=== PATIENT | male | born 1960 | race Caucasian/White ===

== ENCOUNTER 2020-01-30 13:12 | Observation (INO) | payer OTHER ==
[2020-01-30] MEDS ORDERED: Sodium Chloride 0.9% 10 ML Syringe FLUSH PRN (14:06)
[2020-01-30] MEDS ORDERED: chlordiazePOXIDE 10 MG Cap PO PRN (14:11)
[2020-01-30] MEDS ORDERED: Aspirin 81 MG Tab.Chew PO ONE (14:11)
[2020-01-30] MEDS ORDERED: Clopidogrel 75 MG Tab PO ONE (14:11)
[2020-01-30] MEDS ORDERED: Enoxaparin 40 MG/0.4 ML Syringe SUBCUT SCH (15:00)
[2020-01-30] MEDS ORDERED: Clopidogrel 75 MG Tab ONE (16:56)
[2020-01-30] MEDS ORDERED: Aspirin 81 MG Tab.Chew ONE (16:56)
[2020-01-30 16:58] LABS: HEMOGLOBIN A1C 6.7 % (4.3-5.7)
[2020-01-30 17:10] LABS: ANION GAP 15.4 mmol/L (5-15); SODIUM,NA 124 mmol/L (136-145)
[2020-01-30] MEDS ORDERED: Albuterol 0.083% 2.5 MG/3 ML Neb Soln INH PRN (17:12)
[2020-01-30] MEDS ORDERED: Acetaminophen 325 MG Tab PO PRN (17:12)
--- NOTE | 2020-01-30 17:15 | CR ---
[id number] RAD/RAD Chest PA And Lateral EXAM: RAD Chest PA And Lateral INDICATION: CHEST PAIN. COMPARISON: None available. DISCUSSION: Cardiomediastinal silhouette is normal in size and contour. No infiltrate, effusion, pneumothorax, or edema. IMPRESSION: No acute cardiopulmonary abnormality. Hayder Ledesma DO 01/30/20 1714 Thank you for allowing us to participate in the care of your patient.
[2020-01-30 17:21] LABS: CHLORIDE,CL 89 mmol/L (98-115)
[2020-01-30] MEDS: Vitamin B Complex Tab PO SCH (17:25)
[2020-01-30] MEDS ORDERED: ALBUTEROL INH PRN (17:51)
[2020-01-30] MEDS: METOPROLOL SUCCINATE 50 MG PO SCH (18:26)
[2020-01-30] MEDS: Enoxaparin 40 MG/0.4 ML Syringe SUBCUT SCH (20:21)
[2020-01-30] MEDS: chlordiazePOXIDE 10 MG Cap PO PRN (20:22)
[2020-01-31] MEDS: Enoxaparin 40 MG/0.4 ML Syringe SUBCUT SCH ×2 (08:31→19:00)
[2020-01-31] MEDS: Aspirin 81 MG Tab.EC #OWN MED# PO SCH (08:32)
[2020-01-31] MEDS: LOSARTAN 100 MG PO SCH (08:33)
[2020-01-31] MEDS: HYDROCHLOROTHIAZIDE 25 MG PO SCH (08:33)
[2020-01-31] MEDS: AMLODIPINE 10 MG PO SCH (08:34)
[2020-01-31] MEDS: Vitamin B Complex Tab PO SCH (08:46)
[2020-01-31] MEDS: Clopidogrel 75 MG Tab PO SCH (08:46)
[2020-01-31] MEDS ORDERED: Metoprolol Succinate 50 MG Tab.ER PO SCH (09:00)
[2020-01-31] MEDS ORDERED: amLODIPine 5 MG Tab PO SCH (09:00)
[2020-01-31] MEDS ORDERED: Aspirin 81 MG Tab.EC PO SCH (09:00)
[2020-01-31] MEDS ORDERED: Hydrochlorothiazide 25 MG Tab PO SCH (09:00)
[2020-01-31 10:43] LABS: ANION GAP 11.4 mmol/L (5-15); CHLORIDE,CL 93 mmol/L (98-115); SODIUM,NA 129 mmol/L (136-145)
--- NOTE | 2020-01-31 11:00 | PCM.PN ---
- General Info Date of Service: 01/31/20 Functional Status: Reports: Tolerating Diet, Urinating, New Symptoms, Other - Review of Systems General: Reports: No Symptoms HEENT: Reports: No Symptoms Pulmonary: Reports: No Symptoms Cardiovascular: Reports: No Symptoms Gastrointestinal: Reports: No Symptoms Genitourinary: Reports: No Symptoms Musculoskeletal: Reports: Leg Pain Skin: Reports: Rash Neurological: Reports: Difficulty Walking. Denies: Confusion, Dizziness Psychiatric: Reports: No Symptoms - Patient Data Vitals - Most Recent: Last Vital Signs Temp 98.2 F 01/31/20 07:00 Pulse 78 01/31/20 07:00 Resp 16 01/31/20 07:00 BP 158/84 H 01/31/20 08:34 Pulse Ox 97 01/31/20 09:00 Weight - Most Recent: 231 lb 3.2 oz I&O - Last 24 Hours: Intake & Output 01/30/20 01/31/20 01/31/20 22:59 06:59 14:59 Intake Total 600 100 Balance 600 100 Lab Results Last 24 Hours: Laboratory Results - last 24 hr 01/30/20 01/30/20 01/30/20 Range/Units 16:15 16:30 16:30 WBC 4.73 L (5.00-10.00) 10^3/uL RBC 4.03 L (4.50-6.00) 10^6/uL Hgb 13.3 (13.0-17.0) g/dL Hct 37.7 L (40.0-52.0) % MCV 93.5 H D (82.0-92.0) fL MCH 33.0 H (27.0-31.0) pg MCHC 35.3 (32.0-36.0) g/dL RDW 14.8 H (11.5-14.5) % Plt Count 173 (150-400) 10^3/uL MPV 9.1 (7.4-10.4) fL Immature Gran % (Auto) 0.4 (0.0-5.0) % Neut % (Auto) 59.5 (50.0-70.0) % Lymph % (Auto) 21.1 (20.0-40.0) % [place] % (Auto) 16.3 H (2.0-8.0) % Eos % (Auto) 2.1 (1.0-3.0) % Baso % (Auto) 0.6 (0.0-1.0) % Neut # (Auto) 2.81 (2.50-7.00) 10^3/uL Lymph # (Auto) 1.00 (1.00-4.00) 10^3/uL [place] # (Auto) 0.77 (0.10-0.80) 10^3/uL Eos # (Auto) 0.10 (0.10-0.30) 10^3/uL Baso # (Auto) 0.03 (0.00-0.10) 10^3/uL Immature Gran # (Auto) 0.02 (0.00-0.50) 10^3/uL Sodium 124 L (136-145) mmol/L Potassium 3.6 (3.3-5.3) mmol/L Chloride 89 L* (98-115) mmol/L Carbon Dioxide 23.2 (21.0-32.0) mmol/L Anion Gap 15.4 H (5-15) mmol/L BUN 9 (6-25) mg/dL Creatinine 0.85 (0.51-1.17) mg/dL Est Cr Clr Drug Dosing TNP Estimated GFR (MDRD) > 60 mL/min Glucose 182 H (75 - 99) mg/dL Hemoglobin A1c (4.3-5.7) % Calcium 8.8 (8.7-10.3) mg/dL Total Bilirubin 0.7 (0.2-1.0) mg/dL AST 47 H (15-37) U/L ALT 51 (12-78) U/L Alkaline Phosphatase 85 (46-116) IU/L Troponin I (0.00-0.070) ng/mL Total Protein 7.9 (6.4-8.2) g/dL Albumin 3.63 (3.00-4.80) g/dL SARS CoV-2 RNA Rapid FELIPE Negative (NEGATIVE) 01/30/20 01/30/20 01/30/20 Range/Units 16:30 16:30 20:35 WBC (5.00-10.00) 10^3/uL RBC (4.50-6.00) 10^6/uL Hgb (13.0-17.0) g/dL Hct (40.0-52.0) % MCV (82.0-92.0) fL MCH (27.0-31.0) pg MCHC (32.0-36.0) g/dL RDW (11.5-14.5) % Plt Count (150-400) 10^3/uL MPV (7.4-10.4) fL Immature Gran % (Auto) (0.0-5.0) % Neut % (Auto) (50.0-70.0) % Lymph % (Auto) (20.0-40.0) % [place] % (Auto) (2.0-8.0) % Eos % (Auto) (1.0-3.0) % Baso % (Auto) (0.0-1.0) % Neut # (Auto) (2.50-7.00) 10^3/uL Lymph # (Auto) (1.00-4.00) 10^3/uL [place] # (Auto) (0.10-0.80) 10^3/uL Eos # (Auto) (0.10-0.30) 10^3/uL Baso # (Auto) (0.00-0.10) 10^3/uL Immature Gran # (Auto) (0.00-0.50) 10^3/uL Sodium (136-145) mmol/L Potassium (3.3-5.3) mmol/L Chloride (98-115) mmol/L Carbon Dioxide (21.0-32.0) mmol/L Anion Gap (5-15) mmol/L BUN (6-25) mg/dL Creatinine (0.51-1.17) mg/dL Est Cr Clr Drug Dosing Estimated GFR (MDRD) mL/min Glucose (75 - 99) mg/dL Hemoglobin A1c 6.7 H (4.3-5.7) % Calcium (8.7-10.3) mg/dL Total Bilirubin (0.2-1.0) mg/dL AST (15-37) U/L ALT (12-78) U/L Alkaline Phosphatase (46-116) IU/L Troponin I 0.05 0.05 (0.00-0.070) ng/mL Total Protein (6.4-8.2) g/dL Albumin (3.00-4.80) g/dL SARS CoV-2 RNA Rapid FELIPE (NEGATIVE) 01/31/20 01/31/20 Range/Units 07:26 07:26 WBC (5.00-10.00) 10^3/uL RBC (4.50-6.00) 10^6/uL Hgb (13.0-17.0) g/dL Hct (40.0-52.0) % MCV (82.0-92.0) fL MCH (27.0-31.0) pg MCHC (32.0-36.0) g/dL RDW (11.5-14.5) % Plt Count (150-400) 10^3/uL MPV (7.4-10.4) fL Immature Gran % (Auto) (0.0-5.0) % Neut % (Auto) (50.0-70.0) % Lymph % (Auto) (20.0-40.0) % [place] % (Auto) (2.0-8.0) % Eos % (Auto) (1.0-3.0) % Baso % (Auto) (0.0-1.0) % Neut # (Auto) (2.50-7.00) 10^3/uL Lymph # (Auto) (1.00-4.00) 10^3/uL [place] # (Auto) (0.10-0.80) 10^3/uL Eos # (Auto) (0.10-0.30) 10^3/uL Baso # (Auto) (0.00-0.10) 10^3/uL Immature Gran # (Auto) (0.00-0.50) 10^3/uL Sodium 129 L (136-145) mmol/L Potassium 3.7 (3.3-5.3) mmol/L Chloride 93 L (98-115) mmol/L Carbon Dioxide 28.3 (21.0-32.0) mmol/L Anion Gap 11.4 (5-15) mmol/L BUN 11 (6-25) mg/dL Creatinine 0.91 (0.51-1.17) mg/dL Est Cr Clr Drug Dosing 88.48 Estimated GFR (MDRD) > 60 mL/min Glucose 156 H (75 - 99) mg/dL Hemoglobin A1c (4.3-5.7) % Calcium 8.9 (8.7-10.3) mg/dL Total Bilirubin (0.2-1.0) mg/dL AST (15-37) U/L ALT (12-78) U/L Alkaline Phosphatase (46-116) IU/L Troponin I 0.10 H* (0.00-0.070) ng/mL Total Protein (6.4-8.2) g/dL Albumin (3.00-4.80) g/dL SARS CoV-2 RNA Rapid FELIPE (NEGATIVE) Med Orders - Current: Current Medications Acetaminophen (Tylenol) 650 mg PO Q4H PRN PRN Reason: Fever Albuterol (Ventolin Hfa) 0 gm INH Q4HRRT PRN PRN Reason: Wheezing Amlodipine Besylate (Norvasc) 10 mg PO DAILY [facility] Last Admin: 01/31/20 08:34 Dose: 10 mg Documented by: Aspirin (Halfprin) 81 mg PO DAILY [facility] Last Admin: 01/31/20 08:32 Dose: 81 mg Documented by: Chlordiazepoxide HCl (Librium) 10 mg PO Q6H PRN PRN Reason: Anxiety Last Admin: 01/30/20 20:22 Dose: 10 mg Documented by: Clopidogrel Bisulfate (Plavix) 75 mg PO DAILY [facility] Last Admin: 01/31/20 08:46 Dose: 75 mg Documented by: Enoxaparin Sodium (Lovenox) 40 mg SUBCUT BID@0800,2000 [facility] Last Admin: 01/31/20 08:31 Dose: 40 mg Documented by: Hydrochlorothiazide (Hydrochlorothiazide) 25 mg PO DAILY [facility] Last Admin: 01/31/20 08:33 Dose: 25 mg Documented by: Losartan Potassium (Cozaar) 100 mg PO DAILY [facility] Last Admin: 01/31/20 08:33 Dose: 100 mg Documented by: Metoprolol Succinate (Toprol Xl) 50 mg PO DAILY@1800 [facility] Last Admin: 01/30/20 18:26 Dose: 50 mg Documented by: Sodium Chloride (Saline Flush) 10 ml FLUSH Q8HR PRN PRN Reason: keep vein open Vitamin B Complex (Vitamin B Complex) 1 each PO DAILY [facility] Last Admin: 01/31/20 08:46 Dose: 1 each Documented by: Discontinued Medications Albuterol (Proventil Neb Soln) 2.5 mg INH Q4HRRT PRN PRN Reason: Wheezing Amlodipine Besylate (Norvasc) 10 mg PO DAILY [facility] Aspirin (Aspirin) 324 mg PO ONETIME ONE Stop: 01/30/20 14:12 Last Admin: 01/30/20 17:01 Dose: 324 mg Documented by: Aspirin (Aspirin) Confirm Administered Dose 324 mg .ROUTE .STK-MED ONE Stop: 01/30/20 16:57 Last Admin: 01/30/20 17:25 Dose: Not Given Documented by: Aspirin (Halfprin) 81 mg PO DAILY [facility] Chlordiazepoxide HCl (Librium) 5 mg PO Q6H PRN PRN Reason: anxiety/agitation/tremors Clopidogrel Bisulfate (Plavix) 150 mg PO ONETIME ONE Stop: 01/30/20 14:12 Last Admin: 01/30/20 17:02 Dose: 150 mg Documented by: Clopidogrel Bisulfate (Plavix) Confirm Administered Dose 150 mg .ROUTE .STK-MED ONE Stop: 01/30/20 16:57 Last Admin: 01/30/20 17:25 Dose: Not Given Documented by: Enoxaparin Sodium (Lovenox) 40 mg SUBCUT Q12H [facility] Last Admin: 01/31/20 03:15 Dose: Not Given Documented by: Hydrochlorothiazide (Hydrochlorothiazide) 25 mg PO DAILY [facility] Metoprolol Succinate (Toprol Xl) 50 mg PO DAILY [facility] - Exam Quality Assessment: DVT Prophylaxis (Cross covered with Coumadin). No: Supplemental Oxygen General: Alert, Oriented Neck: Supple Lungs: Clear to Auscultation, Normal Respiratory Effort Cardiovascular: Regular Rate, Regular Rhythm GI/Abdominal Exam: Normal Bowel Sounds, Soft (Male) Exam: Deferred Extremities: Pedal Edema (Mild bilateral lower extremities discoloration) Skin: Warm, Dry, Intact, Other Neurological: Normal Speech, Normal Tone, Sensation Intact Psy/Mental Status: Alert, Normal Affect, Normal Mood Sepsis Event Note - Evaluation Sepsis Screening Result: No Definite Risk - Focused Exam Vital Signs: Vital Signs Temp Pulse Resp BP BP Pulse Ox Pulse Ox 01/31/20 09:00 97 01/31/20 08:34 158/84 H 01/31/20 08:33 158/84 H 01/31/20 07:00 98.2 F 78 16 149/85 H 97 01/31/20 03:00 98.4 F 75 16 128/82 95 01/30/20 23:00 96.9 F 76 16 124/89 - Problem List Review Problem List Initiated/Reviewed/Updated: Yes - My Orders Last 24 Hours: My Active Orders 01/31/20 13:30 TROPONIN I [CHEM] Routine - Plan Plan:: History summary Megan is a 59-year old male that was admitted by Nancy Castelan NP from [facility] yesterday January 30, 2020 due to chest pain rule out [place]. Patient stated he really did not have much chest pain initially came in for pain in his lower extremities however his history does denote transient, terse left- sided non-radiating chest pain ~2hours before arrival in which lasted about 15- 20 minutes--what resembling a pulmonary infection he had in the past. So stated he felt like it was indigestion, he had no shortness of breath, diaphoresis or GI upset. Does have DM Type 2, obesity, treated HTN, venous insufficiency. CV Risks, gender, HTN, Obesity, DM, Heart Failure, [facility] Chest X-ray, no acute cardiopulmonary abnormality EKG, Prehospital: NSR Initial 2 troponins normal, third .10 Hospital course Patient had no chest pain overnight and no overnight concerns to the on-call provider. Primary Hospital problems Non-STEMI, repeat EKG Hyponatremia, hypotonic Chronic conditions: T2DM metformin 1000mg BID, A1C >7% COPD: PAPITO PRN HTN: Amlodipine 10mg daily, HCTZ 25mg daily, metoprolol succ 50mg daily, and losartan 100mg daily. Chronic right sided heart failure: Last ECHO 07/2014 with EF of 60%; ASA 81mg daily, ACEI Secondary polycythemia Venous insufficiency BRANDON--CPAP Obesity Disposition/overall plan ARPITA risk Mod Continuing ARB status cardiac telemetry monitoring. Repeat troponin this afternoon. DAPT therapy,
[2020-01-31] MEDS ORDERED: metFORMIN 500 MG Tab ONE (18:37)
[2020-01-31] MEDS: METOPROLOL SUCCINATE 50 MG PO SCH (18:46)
[2020-01-31] MEDS: METFORMIN 1000 MG PO SCH (18:50)
[2020-01-31] MEDS ORDERED: Carboxymethylcellulose Sodium 0.5% Ophth Soln 15 ML Bottle EYEBOTH PRN (20:43)
[2020-01-31] MEDS: chlordiazePOXIDE 10 MG Cap PO PRN (21:13)
[2020-02-01] MEDS ORDERED: metFORMIN 500 MG Tab ONE (08:05)
[2020-02-01] MEDS: LOSARTAN 100 MG PO SCH (08:09)
[2020-02-01] MEDS: METFORMIN 1000 MG PO SCH (08:10)
[2020-02-01] MEDS: AMLODIPINE 10 MG PO SCH (08:10)
[2020-02-01 08:11] LABS: ANION GAP 10.6 mmol/L (5-15); CHLORIDE,CL 94 mmol/L (98-115); SODIUM,NA 129 mmol/L (136-145)
[2020-02-01] MEDS: Enoxaparin 40 MG/0.4 ML Syringe SUBCUT SCH (08:11)
[2020-02-01] MEDS: Clopidogrel 75 MG Tab PO SCH (08:11)
[2020-02-01] MEDS: Vitamin B Complex Tab PO SCH (08:11)
[2020-02-01] MEDS: HYDROCHLOROTHIAZIDE 25 MG PO SCH (08:12)
[2020-02-01] MEDS: Aspirin 81 MG Tab.EC #OWN MED# PO SCH (08:13)
--- NOTE | 2020-02-01 09:40 | PCM.DCSUM1 ---
Discharge Summary - Hospital Course Diagnosis: Stroke: No - Discharge Data Discharge Date: 02/01/20 Discharge Disposition: Home, Self-Care 01 Condition: Fair - Referral to Home Health Primary Care Physician: Rachel Amaya MD - Patient Instructions Diet: Heart Healthy Diet, Diabetic Diet Activity: No Strenuous Activities Driving: May Drive Today Showering/Bathing: May Shower Notify Provider of: Increased Pain Other/Special Instructions: Constance Alejo 1pm (will see Shashi at 2pm that same day) - Discharge Plan *PRESCRIPTION DRUG MONITORING PROGRAM REVIEWED*: Not Applicable *COPY OF PRESCRIPTION DRUG MONITORING REPORT IN PATIENT JÚNIOR: Not Applicable Prescriptions/Med Rec: Nitroglycerin [Nitrostat] 0.4 mg SL ASDIRECTED #10 tab.sl Clopidogrel [Plavix] 75 mg PO DAILY #30 tablet Home Medications: Home Meds Acetaminophen [Tylenol] 650 mg PO Q4H PRN #0 tablet 07/30/14 [Rx] Albuterol [Proventil Neb Soln] 2.5 mg NEB Q4HRRT PRN #0 neb 07/30/14 [Rx] Losartan [Cozaar] 100 mg PO DAILY tab 07/30/14 [Rx] hydroCHLOROthiazide [Hydrochlorothiazide] 25 mg PO DAILY tablet 07/30/14 [Rx] Aspirin [Aspirin EC] 81 mg PO DAILY 01/30/20 [History] Metoprolol Succinate 50 mg PO BEDTIME 01/30/20 [History] amLODIPine Besylate [Amlodipine Besylate] 10 mg PO DAILY 01/30/20 [History] metFORMIN HCl [Metformin HCl] 1,000 mg PO BIDMEALS 01/30/20 [History] Clopidogrel [Plavix] 75 mg PO DAILY #30 tablet 02/01/20 [Rx] Nitroglycerin [Nitrostat] 0.4 mg SL ASDIRECTED #10 tab.sl 02/01/20 [Rx] Patient Handouts: Diabetes Mellitus and Nutrition, Adult Referrals: Shashi Preciado NP [Nurse Practitioner] - 02/07/20 2:00 pm - Discharge Summary/Plan Comment DC Time >30 min.: Yes Discharge Summary/Plan Comment: Final Dx: Non-STEMI, resolved Hyponatremia, hypotonic, improved Chronic conditions: T2DM metformin 1000mg BID, A1C >7% COPD: PAPITO PRN HTN: Amlodipine 10mg daily, HCTZ 25mg daily, metoprolol succ 50mg daily, and losartan 100mg daily. Chronic right sided heart failure: Last ECHO 07/2014 with EF of 60%; ASA 81mg daily, ACEI Secondary polycythemia Venous insufficiency BRANDON--CPAP Obesity History summary Megan is a 59-year old male that was admitted by Nancy Castelan NP from [facility] yesterday January 30, 2020 due to chest pain rule out [place]. Patient stated he really did not have much chest pain initially came in for pain in his lower extremities however his history does denote transient, terse left- sided non-radiating chest pain ~2hours before arrival in which lasted about 15- 20 minutes--what resembling a pulmonary infection he had in the past. So stated he felt like it was indigestion, he had no shortness of breath, diaphoresis or GI upset. Does have DM Type 2, obesity, treated HTN, venous insufficiency. Diagnostics Chest X-ray, no acute cardiopulmonary abnormality EKG, Prehospital: NSR Initial 2 troponins normal, third .10, trended normal Hospital course Patient had no chest pain the entire hospital stay. He was in sinus rhythm without any ST abnormality. His troponins trended down to normal. Started on Plavix in addition to his home aspirin and he tolerated this well. His Metformin was held the first day overnight however this was given the subsequent day. Have low sodium of 124 which was considered hypotonic with a corresponding chloride low at 89. On discharge his sodium improved to 129. Creatinine was normal. He was given education regarding his state of health and his modifiable risk factors such as obesity, the need for improved lifestyle management. He was discussed regarding seeing cardiology upon discharge. Medication changes/adjustments upon discharge Plavix, 75 mg p.o. daily, (newly added) Nitroglycerin 0.4 mg. 1 sublingual 5 minutes x 3 for chest pain, (newly added) To continue on all other medications Disposition Patient will be discharged to self-care, instructions of dietary and further chest pain were given to the patient. He will be followed up with cardiology, he also has an ultrasound of his lower extremities [facility]. He will see myself on the same day. - General Info Functional Status: Reports: Pain Controlled - Review of Systems General: Reports: No Symptoms HEENT: Reports: No Symptoms Pulmonary: Denies: Shortness of Breath Cardiovascular: Denies: Chest Pain Gastrointestinal: Reports: No Symptoms Genitourinary: Reports: No Symptoms Musculoskeletal: Reports: Leg Pain Neurological: Reports: Difficulty Walking. Denies: Weakness Psychiatric: Reports: No Symptoms - Patient Data Vitals - Most Recent: Last Vital Signs Temp 99.1 F 02/01/20 06:08 Pulse 67 02/01/20 06:08 Resp 20 02/01/20 06:08 BP 141/78 H 02/01/20 08:10 Pulse Ox 97 02/01/20 07:30 Weight - Most Recent: 231 lb 3.2 oz I&O - Last 24 hours: Intake & Output 01/31/20 02/01/20 02/01/20 22:59 06:59 14:59 Intake Total 300 700 Balance 300 700 Lab Results - Last 24 hrs: Laboratory Results - last 24 hr 01/31/20 01/31/20 02/01/20 Range/Units 07:26 13:38 07:20 Sodium 129 L 129 L (136-145) mmol/L Potassium 3.7 3.7 (3.3-5.3) mmol/L Chloride 93 L 94 L (98-115) mmol/L Carbon Dioxide 28.3 28.1 (21.0-32.0) mmol/L Anion Gap 11.4 10.6 (5-15) mmol/L BUN 11 14 (6-25) mg/dL Creatinine 0.91 0.95 (0.51-1.17) mg/dL Est Cr Clr Drug Dosing 88.48 84.76 mL/min Estimated GFR (MDRD) > 60 > 60 mL/min Glucose 156 H 139 H (75 - 99) mg/dL Calcium 8.9 8.9 (8.7-10.3) mg/dL Total Bilirubin 1.1 H (0.2-1.0) mg/dL AST 50 H (15-37) U/L ALT 57 (12-78) U/L Alkaline Phosphatase 69 (46-116) IU/L Troponin I 0.09 H* 0.07 (0.00-0.070) ng/mL Total Protein 7.0 (6.4-8.2) g/dL Albumin 3.29 (3.00-4.80) g/dL Med Orders - Current: Current Medications Acetaminophen (Tylenol) 650 mg PO Q4H PRN PRN Reason: Fever Albuterol (Ventolin Hfa) 0 gm INH Q4HRRT PRN PRN Reason: Wheezing Amlodipine Besylate (Norvasc) 10 mg PO DAILY [facility] Last Admin: 02/01/20 08:10 Dose: 10 mg Documented by: Artificial Tears (Refresh Tears 0.5%) 0 ml EYEBOTH ASDIRECTED PRN PRN Reason: Dry Eyes Aspirin (Halfprin) 81 mg PO DAILY [facility] Last Admin: 02/01/20 08:13 Dose: 81 mg Documented by: Chlordiazepoxide HCl (Librium) 10 mg PO Q6H PRN PRN Reason: Anxiety Last Admin: 01/31/20 21:13 Dose: 10 mg Documented by: Clopidogrel Bisulfate (Plavix) 75 mg PO DAILY [facility] Last Admin: 02/01/20 08:11 Dose: 75 mg Documented by: Enoxaparin Sodium (Lovenox) 40 mg SUBCUT BID@0800,2000 [facility] Last Admin: 02/01/20 08:11 Dose: 40 mg Documented by: Hydrochlorothiazide (Hydrochlorothiazide) 25 mg PO DAILY [facility] Last Admin: 02/01/20 08:12 Dose: 25 mg Documented by: Losartan Potassium (Cozaar) 100 mg PO DAILY [facility] Last Admin: 02/01/20 08:09 Dose: 100 mg Documented by: Metoprolol Succinate (Toprol Xl) 50 mg PO DAILY@1800 [facility] Last Admin: 01/31/20 18:46 Dose: 50 mg Documented by: Metformin 1000 Mg (Tab Ptom) 1 each PO BIDMEALS [facility] Last Admin: 02/01/20 08:10 Dose: 1 each Documented by: Sodium Chloride (Saline Flush) 10 ml FLUSH Q8HR PRN PRN Reason: keep vein open Vitamin B Complex (Vitamin B Complex) 1 each PO DAILY [facility] Last Admin: 02/01/20 08:11 Dose: 1 each Documented by: Discontinued Medications Albuterol (Proventil Neb Soln) 2.5 mg INH Q4HRRT PRN PRN Reason: Wheezing Amlodipine Besylate (Norvasc) 10 mg PO DAILY [facility] Aspirin (Aspirin) 324 mg PO ONETIME ONE Stop: 01/30/20 14:12 Last Admin: 01/30/20 17:01 Dose: 324 mg Documented by: Aspirin (Aspirin) Confirm Administered Dose 324 mg .ROUTE .STK-MED ONE Stop: 01/30/20 16:57 Last Admin: 01/30/20 17:25 Dose: Not Given Documented by: Aspirin (Halfprin) 81 mg PO DAILY [facility] Chlordiazepoxide HCl (Librium) 5 mg PO Q6H PRN PRN Reason: anxiety/agitation/tremors Clopidogrel Bisulfate (Plavix) 150 mg PO ONETIME ONE Stop: 01/30/20 14:12 Last Admin: 01/30/20 17:02 Dose: 150 mg Documented by: Clopidogrel Bisulfate (Plavix) Confirm Administered Dose 150 mg .ROUTE .STK-MED ONE Stop: 01/30/20 16:57 Last Admin: 01/30/20 17:25 Dose: Not Given Documented by: Enoxaparin Sodium (Lovenox) 40 mg SUBCUT Q12H [facility] Last Admin: 01/31/20 03:15 Dose: Not Given Documented by: Hydrochlorothiazide (Hydrochlorothiazide) 25 mg PO DAILY [facility] Metformin HCl (Glucophage) Confirm Administered Dose 1,000 mg .ROUTE .STK-MED ONE Stop: 01/31/20 18:38 Last Admin: 01/31/20 19:26 Dose: Not Given Documented by: Metformin HCl (Glucophage) Confirm Administered Dose 1,000 mg .ROUTE .STK-MED ONE Stop: 02/01/20 08:06 Metoprolol Succinate (Toprol Xl) 50 mg PO DAILY [facility] - Exam Quality Assessment: Denies: Supplemental Oxygen General: Reports: Alert, Oriented Neck: Reports: Supple Lungs: Reports: Clear to Auscultation, Normal Respiratory Effort Cardiovascular: Reports: Regular Rate, Regular Rhythm
[2020-02-01 11:26] VITALS: BP 151/88; PULSE 77
== END 2020-02-01 12:40 | disposition home or self-care (01) ==
LOC: KA.MS 16:20
PROVIDERS: ADMIT Nurse Practitioner Family; ATTEND Family Medicine
DX: I21.4 Non-ST elevation (NSTEMI) myocardial infarction (principal); G47.33 Obstructive sleep apnea (adult) (pediatric); E11.51 Type 2 diabetes mellitus with diabetic peripheral angiopathy without gangrene; E66.9 Obesity, unspecified; I87.2 Venous insufficiency (chronic) (peripheral); J44.9 Chronic obstructive pulmonary disease, unspecified; I11.0 Hypertensive heart disease with heart failure; I50.812 Chronic right heart failure; D75.1 Secondary polycythemia; E87.1 Hypo-osmolality and hyponatremia; Z20.828 Contact with and (suspected) exposure to other viral communicable diseases; Z79.899 Other long term (current) drug therapy; Z79.84 Long term (current) use of oral hypoglycemic drugs; Z79.82 Long term (current) use of aspirin; Z88.8 Allergy status to other drugs, medicaments and biological substances; Z98.890 Other specified postprocedural states; Z68.42 Body mass index [BMI] 45.0-49.9, adult
CPT/HCPCS: 36415; 71046; 80048; 80053; 83036; 84484; 85025; 87635; 93005; 96372; A9270; G0378; J1650; U0002

== ENCOUNTER 2020-07-09 10:52 | Emergency (ER) | payer OTHER ==
--- NOTE | 2020-07-09 11:51 | EDM.PDOC ---
ED HPI GENERAL MEDICAL PROBLEM - General Stated Complaint: POSSIBLE STROKE,LT LEG NUMBNESS Time Seen by Provider: 07/09/20 11:17 Source of Information: Reports: Patient History Limitations: Reports: No Limitations - History of Present Illness INITIAL COMMENTS - FREE TEXT/NARRATIVE: Patient presents with bilat leg weakness. He had a lumbar fusion of 4 vertebrae about 4 weeks ago and has been doing rehab in [place] with PT. He hasn't been back for follow up since the surgery/hospitalization but is scheduled for recheck on 07/24. He is wearing a TLSO brace and feels like it is pinching him under the arms and front of thighs. He had chronic leg weakness and difficulty walking prior to surgery so this isn't new but the weakness in his left leg has been worsening the last several days; his ability to stand and walk for PT has also been decreasing noticeably the last several days. He is also noticing some weakness in right arm that he thinks is from the brace as well. Left Leg Pain Score (Numeric/FACES): 9 - Related Data Allergies Allergy/AdvReac Type Severity Reaction Status Date / Time Feqokls-Haa-Pcr Reductase Allergy Other Verified 07/09/20 12:15 Inhibitor molds Allergy Difficulty Uncoded 07/09/20 12:15 Breathing Home Meds: Home Meds Acetaminophen [Tylenol] 650 mg PO Q4H PRN #0 tablet 07/30/14 [Rx] Albuterol [Proventil Neb Soln] 2.5 mg NEB Q4HRRT PRN #0 neb 07/30/14 [Rx] Losartan [Cozaar] 100 mg PO DAILY tab 07/30/14 [Rx] hydroCHLOROthiazide [Hydrochlorothiazide] 25 mg PO DAILY tablet 07/30/14 [Rx] Aspirin [Aspirin EC] 81 mg PO DAILY 01/30/20 [History] Metoprolol Succinate 50 mg PO BEDTIME 01/30/20 [History] amLODIPine Besylate [Amlodipine Besylate] 10 mg PO DAILY 01/30/20 [History] metFORMIN HCl [Metformin HCl] 1,000 mg PO BIDMEALS 01/30/20 [History] Clopidogrel [Plavix] 75 mg PO DAILY #30 tablet 02/01/20 [Rx] Nitroglycerin [Nitrostat] 0.4 mg SL ASDIRECTED #10 tab.sl 02/01/20 [Rx] Past Medical History HEENT History: Reports: Hard of Hearing, Impaired Vision Cardiovascular History: Reports: Hypertension Respiratory History: Reports: Asthma, COPD, Sleep Apnea Musculoskeletal History: Reports: Arthritis, Fracture Psychiatric History: Reports: Addiction, Anxiety, Depression Endocrine/Metabolic History: Reports: Diabetes, Type II, Obesity/BMI 30+ - Infectious Disease History Infectious Disease History: Reports: Chicken Pox, Influenza, Mumps - Past Surgical History Head Surgeries/Procedures: Reports: None HEENT Surgical History: Reports: None Cardiovascular Surgical History: Reports: None Respiratory Surgical History: Reports: None GI Surgical History: Reports: Hernia, Abdominal Endocrine Surgical History: Reports: None Musculoskeletal Surgical History: Reports: None Social & Family History - Family History Family Medical History: No Pertinent Family History - Caffeine Use Caffeine Use: Reports: Coffee, Tea ED ROS GENERAL - Review of Systems Review Of Systems: See Below Constitutional: Denies: Fever, Chills, Malaise HEENT: Reports: No Symptoms Respiratory: Denies: Shortness of Breath, Cough Cardiovascular: Reports: Chest Pain (pain for a few hours that feels like gas pain ) Endocrine: Reports: No Symptoms GI/Abdominal: Reports: Constipation. Denies: Abdominal Pain, Diarrhea, Vomiting : Denies: Dysuria, Flank Pain Musculoskeletal: Reports: Arm Pain (right), Leg Pain (bilat). Denies: Neck Pain, Shoulder Pain Skin: Denies: Cyanosis, Jaundice, Mottled, Pallor, Diaphoresis Neurological: Reports: Numbness (legs, chronic), Tingling, Difficulty Walking, Weakness (bilat legs). Denies: Confusion, Dizziness, Headache, Seizure, Syncope, Trouble Speaking Psychiatric: Denies: Agitation, Anxiety, Confusion ED EXAM, NEURO - Physical Exam Exam: See Below Exam Limited By: No Limitations General Appearance: Alert, WD/WN, No Apparent Distress Eye Exam: Bilateral Eye: EOMI, Normal Inspection, PERRL Ears: Normal External Exam, Hearing Grossly Normal Nose: Normal Inspection, No Blood Throat/Mouth: Normal Inspection, Normal Lips, Normal Voice, No Airway Compromise Head Exam: Atraumatic, Normocephalic Neck: Normal Inspection, Full Range of Motion Respiratory/Chest: No Respiratory Distress, Lungs Clear, Normal Breath Sounds, No Accessory Muscle Use Cardiovascular: Regular Rate, Rhythm, No Murmur GI/Abdominal: Normal Bowel Sounds, Soft, Non-Tender Neurological: Alert, Normal Mood/Affect, Oriented x 3, Other (NIHSS is normal except he cannot raise either foot. Sensation is intact in leg and ankle but decreased somewhat at bilt dorsal distal foot. He has sensation there but not full, as it is more proximally. He has no appreciable plantar/dorsiflexion bilat, which is chronic also. ) Back Exam: Normal Inspection (incisions healing nicely.), Full Range of Motion Extremities: Other (He cannot raise either foot but can raise the right thigh about 45 degrees and left about 30 degrees if he allows the knees to bend and not raise the lower leg.) Psychiatric: Normal Affect, Normal Mood Skin Exam: Warm, Dry, Intact, Normal Color (except chronic stasis dermatitis of LE), No Rash Course - Vital Signs Last Recorded V/S: Last Vital Signs Temp 98.7 F 07/09/20 11:00 Pulse 76 07/09/20 12:09 Resp 14 07/09/20 12:09 BP 135/86 07/09/20 12:09 Pulse Ox 97 07/09/20 12:09 - Orders/Labs/Meds Orders: Active Orders 24 hr Category Date Time Status EKG Documentation Completion [RC] ASDIRECTED Care 07/09/20 11:12 Active EKG Documentation Completion [RC] STAT Care 07/09/20 11:12 Active EKG 12 Lead [EK] Stat Ther 07/09/20 11:12 Ordered Labs: Laboratory Tests 07/09/20 Range/Units 11:23 Troponin I < 0.017 (0.000-0.056) ng/mL - Re-Assessments/Exams Free Text/Narrative Re-Assessment/Exam: 07/09/20 12:31 I discussed case with Dr. Gresham, neurosurgeon at [facility], who feels patient should be evaluated sooner than his current 07/24 appointment. This is rescheduled for 07/11. Surgeon was Dr. Pineda. Discussed findings and plan with patient who agrees with plan. He is stable at discharge. Departure - Departure Time of Disposition: 12:28 Disposition: DC/Tfer to SNF 03 Condition: Good Clinical Impression: Left leg weakness, History of lumbar fusion - Discharge Information Referrals: Rachel Amaya MD [Primary Care Provider] - Additional Instructions: Go to neurosurgery appointment on 07/11/20 as scheduled at 9:30. No PT until that appointment. Sepsis Event Note (ED) - Focused Exam Vital Signs: Vital Signs Temp Pulse Resp BP Pulse Ox 07/09/20 12:09 76 14 135/86 97 07/09/20 11:00 98.7 F 69 15 138/77 99 - My Orders Last 24 Hours: My Active Orders 07/09/20 11:12 EKG Documentation Completion [RC] ASDIRECTED EKG Documentation Completion [RC] STAT EKG 12 Lead [EK] Stat - Assessment/Plan Last 24 Hours: My Active Orders 07/09/20 11:12 EKG Documentation Completion [RC] ASDIRECTED EKG Documentation Completion [RC] STAT EKG 12 Lead [EK] Stat
[2020-07-09 12:12] VITALS: BP 135/86; PULSE 76
== END 2020-07-09 13:35 ==
LOC: KA.ED 10:52
DX: R53.1 Weakness (principal); R07.9 Chest pain, unspecified; K59.00 Constipation, unspecified; R20.2 Paresthesia of skin; R20.0 Anesthesia of skin; R26.2 Difficulty in walking, not elsewhere classified; I10 Essential (primary) hypertension; J44.9 Chronic obstructive pulmonary disease, unspecified; M19.90 Unspecified osteoarthritis, unspecified site; E11.9 Type 2 diabetes mellitus without complications; E66.9 Obesity, unspecified; Z68.41 Body mass index [BMI] 40.0-44.9, adult; Z79.82 Long term (current) use of aspirin; Z79.02 Long term (current) use of antithrombotics/antiplatelets; Z79.84 Long term (current) use of oral hypoglycemic drugs; Z79.899 Other long term (current) drug therapy; Z88.8 Allergy status to other drugs, medicaments and biological substances; Z91.048 Other nonmedicinal substance allergy status; Z98.890 Other specified postprocedural states
CPT/HCPCS: 84484; 93005; 99284; 99285-25

== ENCOUNTER 2020-10-05 15:33 | Inpatient (IN) | payer MEDICAID ==
[2020-10-05] MEDS ORDERED: Sodium Chloride 0.9% 1,000 ML IV SCH ×2 (16:15→23:47)
[2020-10-05] MEDS: Pantoprazole 40 MG Vial IVPUSH SCH (17:41)
[2020-10-05] MEDS ORDERED: Bisacodyl 10 MG Supp RECTAL PRN (18:53)
[2020-10-05] MEDS ORDERED: COCOA BUTTER RC PRN (18:53)
[2020-10-05] MEDS ORDERED: Carboxymethylcellulose Sodium 0.5% Ophth Soln 15 ML Bottle EYEBOTH PRN (18:53)
[2020-10-05] MEDS ORDERED: Simethicone 80 MG Tab.Chew PO PRN (18:53)
[2020-10-05] MEDS ORDERED: PHENYLEPHRINE RC PRN (18:53)
[2020-10-05] MEDS ORDERED: Albuterol 8 GM Inhaler INH PRN (18:53)
[2020-10-05] MEDS ORDERED: Nitroglycerin 0.4 MG Tab.SL SL SCH (19:00)
[2020-10-05] MEDS: traMADol 50 MG Tab PO PRN (20:09)
[2020-10-05] MEDS: Acetaminophen 325 MG Tab PO PRN (20:09)
[2020-10-05] MEDS: Formoterol/Mometasone 100-5 MCG 8.8 GM Inhaler IH SCH (21:13)
[2020-10-05] MEDS: Menthol/Zinc Oxide Ointment 113 GM Tube TOP SCH (21:13)
[2020-10-05] MEDS: Pregabalin 100 MG Cap PO SCH (21:13)
[2020-10-05] MEDS: Docusate Sodium 100 MG Cap PO SCH (21:13)
[2020-10-05] MEDS ORDERED: traZODone 50 MG Tab PO ONE (23:46)
[2020-10-05] MEDS ORDERED: Mirtazapine 15 MG Tab ONE (23:55)
[2020-10-05] MEDS ORDERED: DULoxetine 30 MG Cap ONE (23:55)
[2020-10-05] MEDS ORDERED: Tamsulosin 0.4 MG Cap.ER ONE (23:56)
[2020-10-05] MEDS ORDERED: traZODone 50 MG Tab ONE (23:56)
[2020-10-06] MEDS: Acetaminophen 325 MG Tab PO PRN (03:37)
[2020-10-06] MEDS: Pantoprazole 40 MG Vial IVPUSH SCH (03:37)
[2020-10-06] MEDS: traMADol 50 MG Tab PO PRN ×2 (03:37→10:33)
[2020-10-06 07:54] LABS: ANION GAP 6.7 mmol/L (5-15); CHLORIDE,CL 101 mmol/L (98-107); SODIUM,NA 140 mmol/L (136-145)
[2020-10-06] MEDS: Pregabalin 100 MG Cap PO SCH (08:38)
[2020-10-06] MEDS: Formoterol/Mometasone 100-5 MCG 8.8 GM Inhaler IH SCH (08:42)
[2020-10-06] MEDS ORDERED: Thiamine 100 MG Tab PO SCH (09:00)
[2020-10-06] MEDS ORDERED: Cyanocobalamin (Vitamin B12) 500 MCG Tab PO SCH (09:00)
[2020-10-06] MEDS ORDERED: VITAMIN B6 PYRIDOXINE 100 MG PO SCH (09:00)
[2020-10-06] MEDS ORDERED: Finasteride 5 MG Tab PO SCH (09:00)
[2020-10-06] MEDS ORDERED: Polyethylene Glycol 3350 Powder 17 GM Packet PO SCH (09:00)
[2020-10-06] MEDS ORDERED: DULoxetine 30 MG Cap PO SCH ×2 (09:00→21:00)
[2020-10-06] MEDS ORDERED: Metoprolol Succinate 25 MG Tab.ER PO SCH (09:00)
[2020-10-06] MEDS ORDERED: Sertraline 50 MG Tab PO SCH (09:00)
[2020-10-06] MEDS ORDERED: Tamsulosin 0.4 MG Cap.ER PO SCH ×2 (09:00→21:00)
[2020-10-06] MEDS: Docusate Sodium 100 MG Cap PO SCH (10:35)
[2020-10-06] MEDS: Menthol/Zinc Oxide Ointment 113 GM Tube TOP SCH (10:35)
[2020-10-06 10:48] VITALS: BP 124/64; PULSE 84
--- NOTE | 2020-10-06 11:17 | PCM.DCSUM1 ---
Discharge Summary - Hospital Course Free Text/Narrative:: Date of admission: Date of discharge: 10/06/2020 Admission diagnoses: #Bloody stools #Anemia #Hypertension Discharge diagnoses: #Bloody stools #Anemia #Hypotension, stable #Chronic inflammatory demyelinating polyneuropathy #Weakness of both lower extremities #Upper extremity weakness #Neurogenic bowel #Neurogenic bladder #Chronic right-sided heart failure #Hypertension Consultations: Dr. Woods at [facility] for admit for endoscopy Procedures: None Hospital course: HPI summary: Patient was admitted from [facility] due to bloody stools 2, hypotension and anemia. Hemoglobin was 8 and 3 weeks ago was 11.2. Call was initially placed to [facility] in [place] and acceptance for endoscopy, however patient refused transfer to [place] and was admitted locally for monitoring. 10/06/2020: Patient had 1 stool overnight that was tested for blood and was positive, however no obvious blood noted in the stool. Blood pressure has remained stable overnight with current blood pressure being 124/64. Patient reports more fatigue and shortness of breath. Hemoglobin this a.m. is 7.5. He has been kept nothing by mouth with exception of ice chips. Call placed to [facility] as patient is agreeable to be transferred to [place] today for endoscopy. Received acceptance from Dr. Woods and patient transported via EMS. Discharge and follow-up recommendations: - Discharge to [facility] - New medications at discharge: none - Follow-up post hospitalization HPI Initial Comments: 60-year-old male resident of [facility] admitted to inpatient from [facility] due to bloody stools, anemia and hypotension. Patient initially refused transfer to [facility] where he could have endoscopy completed. Hemoglobin from [facility] on admission was 8.0. - Discharge Data Discharge Date: 10/06/20 Discharge Disposition: DC/Tfer to Acute Hospital 02 Condition: Fair - Referral to Home Health Primary Care Physician: Nancy Castelan NP - Discharge Plan *PRESCRIPTION DRUG MONITORING PROGRAM REVIEWED*: No *COPY OF PRESCRIPTION DRUG MONITORING REPORT IN PATIENT JÚNIOR: No Home Medications: Home Meds amLODIPine Besylate [Amlodipine Besylate] 10 mg PO DAILY 01/30/20 [History] metFORMIN HCl [Metformin HCl] 1,000 mg PO BIDMEALS 01/30/20 [History] Nitroglycerin [Nitrostat] 0.4 mg SL ASDIRECTED #10 tab.sl 02/01/20 [Rx] Benzocaine/Menthol [Cepacol Sore Throat Lozenge] 1 each MM TID PRN 08/29/20 [H istory] Bisacodyl [Gentle Laxative] 10 mg RC DAILY PRN 08/29/20 [History] [place] Butter/Phenylephrine [Preparation H Supp] 1 each RC DAILY PRN 08/29/20 [History] Cyanocobalamin (Vitamin B12) [Vitamin B12] 250 mcg PO DAILY 08/29/20 [History] Diclofenac Sodium [Voltaren Arthritis Pain] 20 gm TP QID PRN 08/29/20 [History] Docusate Sodium [Colace] 100 mg PO BID 08/29/20 [History] Lactulose 15 ml PO TID PRN 08/29/20 [History] Losartan Potassium 100 mg PO DAILY 08/29/20 [History] Metoprolol Succinate [Toprol XL] 25 mg PO DAILY 08/29/20 [History] Polyvinyl Alcohol/Povidone/Pf [Refresh Classic Eye Drops] 1 each OP Q1H PRN 08/29/20 [History] Pregabalin [Lyrica] 200 mg PO BID 08/29/20 [History] Simethicone 80 mg PO QID PRN 08/29/20 [History] Tamsulosin HCl 0.8 mg PO DAILY 08/29/20 [History] Thiamine [Vitamin B-1] 100 mg PO DAILY 08/29/20 [History] Vitamin B6-pyridOXINE 100 mg PO DAILY 08/29/20 [History] polyethylene glycoL 3350 [MiraLAX] 17 gm PO DAILY 08/29/20 [History] traMADol HCl [Tramadol HCl] 50 mg PO Q6H PRN 08/29/20 [History] Acetaminophen [Tylenol] 650 mg PO TID 10/05/20 [History] Albuterol [Ventolin HFA] 1 puff INH Q4H PRN 10/05/20 [History] Budesonide/Formoterol Fumarate [Symbicort 80-4.5 MCG] 2 puff INH BID 10/05/20 [History] DULoxetine [Cymbalta] 30 mg PO DAILY 10/05/20 [History] Diclofenac Sodium 75 mg PO BID 10/05/20 [History] Finasteride 5 mg PO DAILY 10/05/20 [History] Menthol/Zinc Oxide [Calmoseptine] 1 applic TOP TID 10/05/20 [History] Mirtazapine [Remeron] 15 mg PO DAILY 10/05/20 [History] Sertraline [Zoloft] 50 mg PO DAILY 10/05/20 [History] hydroCHLOROthiazide [Hydrochlorothiazide] 25 mg PO DAILY 10/05/20 [History] - Discharge Summary/Plan Comment DC Time >30 min.: Yes - General Info Date of Service: 10/06/20 Functional Status: Reports: Pain Controlled - Review of Systems General: Reports: Weakness, Fatigue, Appetite (hungry, but NPO). Denies: Fever HEENT: Denies: Headaches, Sinus Congestion, Sore Throat Pulmonary: Reports: Shortness of Breath (baseline). Denies: Cough, Wheezing Cardiovascular: Reports: Edema. Denies: Chest Pain, Palpitations, Lightheadedness Gastrointestinal: Denies: Abdominal Pain, Constipation, Diarrhea, Nausea, Vomiting Genitourinary: Reports: Other (catheter in place). Denies: Dysuria, Pain Musculoskeletal: Reports: Back Pain. Denies: Neck Pain, Joint Swelling Skin: Denies: Jaundice, Diaphoresis, Dryness Neurological: Reports: Pre-Existing Deficit. Denies: Confusion, Headache, Trouble Speaking Psychiatric: Denies: Confusion, Depression, Anxiety - Patient Data Vitals - Most Recent: Last Vital Signs Temp 37.1 C 10/06/20 10:47 Pulse 84 10/06/20 10:47 Resp 16 10/06/20 10:47 BP 124/64 10/06/20 10:47 Pulse Ox 94 L 10/06/20 10:47 Weight - Most Recent: 145.15 kg I&O - Last 24 hours: Intake & Output 10/05/20 10/06/20 10/06/20 22:59 06:59 14:59 Intake Total 1040 Output Total 2700 1400 Balance -2700 -360 Lab Results - Last 24 hrs: Laboratory Results - last 24 hr 10/05/20 10/05/20 10/05/20 Range/Units 16:06 16:30 16:30 WBC 11.01 H (5.00-10.00) 10^3/uL RBC 2.77 L (4.50-6.00) 10^6/uL Hgb 8.4 L D (13.0-17.0) g/dL Hct 27.2 L (40.0-52.0) % MCV 98.2 H D (82.0-92.0) fL MCH 30.3 (27.0-31.0) pg MCHC 30.9 L (32.0-36.0) g/dL RDW 17.3 H (11.5-14.5) % Plt Count 224 (150-400) 10^3/uL MPV 9.5 (7.4-10.4) fL Immature Gran % (Auto) 0.8 (0.0-5.0) % Neut % (Auto) 77.2 H (50.0-70.0) % Lymph % (Auto) 8.0 L (20.0-40.0) % [place] % (Auto) 9.4 H (2.0-8.0) % Eos % (Auto) 4.5 H (1.0-3.0) % Baso % (Auto) 0.1 (0.0-1.0) % Neut # (Auto) 8.50 H (2.50-7.00) 10^3/uL Lymph # (Auto) 0.88 L (1.00-4.00) 10^3/uL [place] # (Auto) 1.04 H (0.10-0.80) 10^3/uL Eos # (Auto) 0.49 H (0.10-0.30) 10^3/uL Baso # (Auto) 0.01 (0.00-0.10) 10^3/uL Immature Gran # (Auto) 0.09 (0.00-0.50) 10^3/uL Sodium (136-145) mmol/L Potassium (3.5-5.1) mmol/L Chloride (98-107) mmol/L Carbon Dioxide (21.0-32.0) mmol/L Anion Gap (5-15) mmol/L BUN (7-18) mg/dL Creatinine (0.51-1.17) mg/dL Est Cr Clr Drug Dosing mL/min Estimated GFR (MDRD) mL/min Glucose (70-140) mg/dL POC Glucose (70-140) mg/dL Calcium (8.7-10.3) mg/dL Total Bilirubin (0.2-1.0) mg/dL AST (15-37) U/L ALT (14-63) U/L Alkaline Phosphatase (46-116) U/L Total Protein (6.4-8.2) g/dL Albumin (3.40-5.00) g/dL SARS CoV-2 RNA Rapid FELIPE Negative (NEGATIVE) Blood Type O POSITIVE Gel Antibody Screen Negative Crossmatch See Detail 10/05/20 10/06/20 10/06/20 Range/Units 19:19 07:20 07:20 WBC 9.21 (5.00-10.00) 10^3/uL RBC 2.48 L (4.50-6.00) 10^6/uL Hgb 7.5 L (13.0-17.0) g/dL Hct 24.3 L (40.0-52.0) % MCV 98.0 H (82.0-92.0) fL MCH 30.2 (27.0-31.0) pg MCHC 30.9 L (32.0-36.0) g/dL RDW 17.5 H (11.5-14.5) % Plt Count 198 (150-400) 10^3/uL MPV 9.5 (7.4-10.4) fL Immature Gran % (Auto) 0.8 (0.0-5.0) % Neut % (Auto) 76.9 H (50.0-70.0) % Lymph % (Auto) 8.9 L (20.0-40.0) % [place] % (Auto) 9.4 H (2.0-8.0) % Eos % (Auto) 3.9 H (1.0-3.0) % Baso % (Auto) 0.1 (0.0-1.0) % Neut # (Auto) 7.08 H (2.50-7.00) 10^3/uL Lymph # (Auto) 0.82 L (1.00-4.00) 10^3/uL [place] # (Auto) 0.87 H (0.10-0.80) 10^3/uL Eos # (Auto) 0.36 H (0.10-0.30) 10^3/uL Baso # (Auto) 0.01 (0.00-0.10) 10^3/uL Immature Gran # (Auto) 0.07 (0.00-0.50) 10^3/uL Sodium 140 (136-145) mmol/L Potassium 4.3 (3.5-5.1) mmol/L Chloride 101 (98-107) mmol/L Carbon Dioxide 36.6 H (21.0-32.0) mmol/L Anion Gap 6.7 (5-15) mmol/L BUN 28 H (7-18) mg/dL Creatinine 0.73 (0.51-1.17) mg/dL Est Cr Clr Drug Dosing 112.50 mL/min Estimated GFR (MDRD) > 60 mL/min Glucose 89 (70-140) mg/dL POC Glucose 97 (70-140) mg/dL Calcium 8.7 (8.7-10.3) mg/dL Total Bilirubin 0.2 (0.2-1.0) mg/dL AST 20 (15-37) U/L ALT 20 (14-63) U/L Alkaline Phosphatase 95 (46-116) U/L Total Protein 6.4 (6.4-8.2) g/dL Albumin 2.39 L (3.40-5.00) g/dL SARS CoV-2 RNA Rapid FELIPE (NEGATIVE) Blood Type Gel Antibody Screen Crossmatch DEMARIO Results - Last 24 hrs: Microbiology 10/05/20 16:40 Occult Blood - Final Stool / Feces Med Orders - Current: Current Medications Acetaminophen (Acetaminophen 325 Mg Tab) 650 mg PO Q4H PRN PRN Reason: Pain Last Admin: 10/06/20 03:37 Dose: 650 mg Documented by: Albuterol (Albuterol 8 Gm Inhaler) 0 gm INH Q4H PRN PRN Reason: Wheezing Last Admin: 10/05/20 21:37 Dose: 1 puff Documented by: Artificial Tears (Carboxymethylcellulose Sodium 0.5% Ophth Soln 15 Ml Bottle) 0 ml EYEBOTH Q1H PRN PRN Reason: Dry Eyes Bisacodyl (Bisacodyl 10 Mg Supp) 10 mg RECTAL DAILY PRN PRN Reason: Constipation Calamine/Phenol (Menthol/Zinc Oxide Ointment 113 Gm Tube) 0 gm TOP TID TERESITA Last Admin: 10/06/20 10:35 Dose: Not Given Documented by: Cyanocobalamin (Cyanocobalamin (Vitamin B12) 500 Mcg Tab) 250 mcg PO DAILY [facility] Last Admin: 10/06/20 10:36 Dose: Not Given Documented by: Docusate Sodium (Docusate Sodium 100 Mg Cap) 100 mg PO BID [facility] Last Admin: 10/06/20 10:35 Dose: Not Given Documented by: Duloxetine HCl (Duloxetine 30 Mg Cap) 30 mg PO 2100 [facility] Last Admin: 10/05/20 23:57 Dose: 30 mg Documented by: Finasteride (Finasteride 5 Mg Tab) 5 mg PO DAILY [facility] Last Admin: 10/06/20 10:36 Dose: Not Given Documented by: Sodium Chloride (Normal Saline) 1,000 mls @ 75 mls/hr IV ASDIRECTED [facility] Last Admin: 10/06/20 05:30 Dose: 75 mls/hr Documented by: Metoprolol Succinate (Metoprolol Succinate 25 Mg Tab.Er) 25 mg PO DAILY [facility] Last Admin: 10/06/20 10:36 Dose: Not Given Documented by: Mirtazapine (Mirtazapine 15 Mg Tab) 15 mg PO 2100 [facility] Last Admin: 10/05/20 23:58 Dose: 15 mg Documented by: Mometasone Furoate/Formoterol Fumar (Formoterol/Mometasone 100-5 Mcg 8.8 Gm Inhaler) 0 puff IH BID [facility] Last Admin: 10/06/20 08:42 Dose: 2 puff Documented by: Nitroglycerin (Nitroglycerin 0.4 Mg Tab.Sl) 0.4 mg SL ASDIRECTED [facility] Non-Formulary Medication (Vitamin B6-Pyridoxine [Vitamin B6-Pyridoxine]) 100 mg PO DAILY [facility] Pantoprazole Sodium (Pantoprazole 40 Mg Vial) 40 mg IVPUSH Q12H [facility] Last Admin: 10/06/20 03:37 Dose: 40 mg Documented by: Polyethylene Glycol (Polyethylene Glycol 3350 Powder 17 Gm Packet) 17 gm PO DAILY [facility] Last Admin: 10/06/20 10:36 Dose: Not Given Documented by: Pregabalin (Pregabalin 100 Mg Cap) 200 mg PO BID [facility] Last Admin: 10/06/20 08:38 Dose: 200 mg Documented by: Sertraline HCl (Sertraline 50 Mg Tab) 50 mg PO DAILY [facility] Last Admin: 10/06/20 10:36 Dose: Not Given Documented by: Simethicone (Simethicone 80 Mg Tab.Chew) 80 mg PO QID PRN PRN Reason: Gas Tamsulosin HCl (Tamsulosin 0.4 Mg Cap.Er) 0.8 mg PO 2100 [facility] Last Admin: 10/05/20 23:57 Dose: 0.8 mg Documented by: Thiamine HCl (Thiamine 100 Mg Tab) 100 mg PO DAILY [facility] Last Admin: 10/06/20 10:36 Dose: Not Given Documented by: Tramadol HCl (Tramadol 50 Mg Tab) 50 mg PO Q6H PRN PRN Reason: Pain Last Admin: 10/06/20 10:33 Dose: 50 mg Documented by: Discontinued Medications Duloxetine HCl (Duloxetine 30 Mg Cap) 30 mg PO DAILY [facility] Duloxetine HCl (Duloxetine 30 Mg Cap) Confirm Administered Dose 30 mg .ROUTE .STK-MED ONE Stop: 10/05/20 23:56 Last Admin: 10/06/20 01:06 Dose: Not Given Documented by: Sodium Chloride (Normal Saline) 1,000 mls @ 100 mls/hr IV ASDIRECTED [facility] Last Infusion: 10/05/20 23:50 Dose: 75 mls/hr Documented by: Mirtazapine (Mirtazapine 15 Mg Tab) Confirm Administered Dose 15 mg .ROUTE .STK- MED ONE Stop: 10/05/20 23:56 Last Admin: 10/06/20 01:06 Dose: Not Given Documented by: Non-Formulary Medication ([place] Butter/Phenylephrine) 1 each RC DAILY PRN PRN Reason: hemmorhoids Tamsulosin HCl (Tamsulosin 0.4 Mg Cap.Er) 0.8 mg PO DAILY [facility] Tamsulosin HCl (Tamsulosin 0.4 Mg Cap.Er) Confirm Administered Dose 0.8 mg .ROUTE .STK-MED ONE Stop: 10/05/20 23:57 Last Admin: 10/06/20 01:06 Dose: Not Given Documented by: Trazodone HCl (Trazodone 50 Mg Tab) 25 mg PO ONETIME ONE Stop: 10/05/20 23:47 Last Admin: 10/05/20 23:57 Dose: 25 mg Documented by: Trazodone HCl (Trazodone 50 Mg Tab) Confirm Administered Dose 50 mg .ROUTE .STK- MED ONE Stop: 10/05/20 23:57 Last Admin: 10/06/20 01:06 Dose: Not Given Documented by: - Exam Physical Findings Comments:: GENERAL: Well-appearing adult in no acute distress. HEENT: Normocephalic, atraumatic. Conjunctiva clear. Nares patent without discharge. Mucous membranes moist, posterior pharynx unremarkable. NECK: Supple, no masses. CV: Regular rate and rhythm, no murmurs, rubs, or gallops. 2+ radial pulses. PULMONARY: Normal effort, clear to auscultation bilaterally, no wheezes, rales, or rhonchi. ABDOMEN: Positive bowel sounds, soft, nontender, nondistended. EXTREMITIES: Wraps in place to right upper and bilateral lower extremities without pitting edema, no cyanosis or clubbing. MUSCULOSKELETAL: Assists with movement as able due to pre-existing deficit NEUROLOGICAL: No obvious deficits. DERMATOLOGIC: No rashes or suspicious lesions in exposed areas. PSYCHIATRIC: Alert, interactive, appropriate affect.
[2020-10-06] MEDS ORDERED: Mirtazapine 15 MG Tab PO SCH (21:00)
== END 2020-10-06 11:20 | DRG 378 ==
LOC: KA.MS 15:33
PROVIDERS: ADMIT Nurse Practitioner Family; ATTEND Family Medicine
DX: K92.1 Melena (principal); G61.81 Chronic inflammatory demyelinating polyneuritis; D64.9 Anemia, unspecified; I95.9 Hypotension, unspecified; M62.81 Muscle weakness (generalized); N31.9 Neuromuscular dysfunction of bladder, unspecified; N32.81 Overactive bladder; I11.0 Hypertensive heart disease with heart failure; I50.9 Heart failure, unspecified; Z20.822 Contact with and (suspected) exposure to COVID-19
CPT/HCPCS: 36415; 80053; 82270; 82947; 85025; 86850; 86900; 86901; 86920; 86922; A9270-GY; C9113; J7030; U0002

== ENCOUNTER 2020-11-15 20:39 | Emergency (ER) | payer MEDICAID ==
--- NOTE | 2020-11-15 21:10 | EDM.PDOC ---
ED HPI GENERAL MEDICAL PROBLEM - General Chief Complaint: General Stated Complaint: RLL pneumonia, UTI Time Seen by Provider: 11/15/20 21:10 Source of Information: Reports: Patient, EMS, Longterm Records - History of Present Illness INITIAL COMMENTS - FREE TEXT/NARRATIVE: Megan 60-year-old male, sent by ambulance from [facility] in [place] with respiratory distress/decreased saturations today. No report was called so we are going by halfway records only. Was seen 14 November 2020 by Nancy Castelan with recommendation for hospital that he refused at that time. He was diagnosed with a questionable right lower lobe pneumonia as well as a UTI from 2 days prior culture showing E. coli greater than 100,000. Culture is pending on that at this time. Was placed on Levaquin 750 mg daily and has deteriorated according to this paper report since then with saturations at 85 prior to his as needed albuterol nebulizer and oxygen being increased to 6 L. He states he also has had a "New treatment patch" placed on his buttocks for something he states was not noticed earlier in his cares. Rubén converses with this and gives us much information as he is aware of stating he is unsure on the issues with the long mass that was noted on x-ray with recommendation for CT contrast. No signed note is available from the visit yesterday. Onset: Unknown/Unsure Duration: Hour(s):, Getting Worse - Related Data Allergies Allergy/AdvReac Type Severity Reaction Status Date / Time Hvitizq-Upr-Dow Reductase Allergy Other Verified 11/15/20 20:50 Inhibitor molds Allergy Difficulty Uncoded 11/15/20 20:50 Breathing Home Meds: Home Meds amLODIPine Besylate [Amlodipine Besylate] 10 mg PO DAILY 01/30/20 [History] metFORMIN HCl [Metformin HCl] 1,000 mg PO BIDMEALS 01/30/20 [History] Nitroglycerin [Nitrostat] 0.4 mg SL ASDIRECTED #10 tab.sl 02/01/20 [Rx] Benzocaine/Menthol [Cepacol Sore Throat Lozenge] 1 each MM TID PRN 08/29/20 [History] Bisacodyl [Gentle Laxative] 10 mg RC DAILY PRN 08/29/20 [History] Candor Butter/Phenylephrine [Preparation H Supp] 1 each RC DAILY PRN 08/29/20 [History] Cyanocobalamin (Vitamin B12) [Vitamin B12] 250 mcg PO DAILY 08/29/20 [History] Diclofenac Sodium [Voltaren Arthritis Pain] 20 gm TP QID PRN 08/29/20 [History] Docusate Sodium [Colace] 100 mg PO BID 08/29/20 [History] Lactulose 15 ml PO TID PRN 08/29/20 [History] Losartan Potassium 100 mg PO DAILY 08/29/20 [History] Metoprolol Succinate [Toprol XL] 25 mg PO DAILY 08/29/20 [History] Polyvinyl Alcohol/Povidone/Pf [Refresh Classic Eye Drops] 1 each OP Q1H PRN 08/29/20 [History] Pregabalin [Lyrica] 200 mg PO BID 08/29/20 [History] Simethicone 80 mg PO QID PRN 08/29/20 [History] Tamsulosin HCl 0.8 mg PO DAILY 08/29/20 [History] Thiamine [Vitamin B-1] 100 mg PO DAILY 08/29/20 [History] Vitamin B6-pyridOXINE 100 mg PO DAILY 08/29/20 [History] polyethylene glycoL 3350 [MiraLAX] 17 gm PO DAILY 08/29/20 [History] traMADol HCl [Tramadol HCl] 50 mg PO Q6H PRN 08/29/20 [History] Acetaminophen [Tylenol] 650 mg PO TID 10/05/20 [History] Albuterol [Ventolin HFA] 1 puff INH Q4H PRN 10/05/20 [History] Budesonide/Formoterol Fumarate [Symbicort 80-4.5 MCG] 2 puff INH BID 10/05/20 [History] DULoxetine [Cymbalta] 30 mg PO DAILY 10/05/20 [History] Diclofenac Sodium 75 mg PO BID 10/05/20 [History] Finasteride 5 mg PO DAILY 10/05/20 [History] Menthol/Zinc Oxide [Calmoseptine] 1 applic TOP TID 10/05/20 [History] Mirtazapine [Remeron] 15 mg PO DAILY 10/05/20 [History] Sertraline [Zoloft] 50 mg PO DAILY 10/05/20 [History] hydroCHLOROthiazide [Hydrochlorothiazide] 25 mg PO DAILY 10/05/20 [History] Past Medical History HEENT History: Reports: Hard of Hearing, Impaired Vision Cardiovascular History: Reports: Hypertension, Other (See Below) Other Cardiovascular History: VENOUS INSUFFICIENCY Respiratory History: Reports: Asthma, COPD, Sleep Apnea, Other (See Below) Other Respiratory History: MULTIPLE PULMONARY NODULES Gastrointestinal History: Reports: Chronic Constipation, GERD Genitourinary History: Reports: Neurogenic Bladder, Other (See Below) Other Genitourinary History: Chronic indwelling catheter. Musculoskeletal History: Reports: Arthritis, Back Pain, Chronic, Fracture Neurological History: Reports: Neuropathy, Peripheral, Other (See Below) Other Neuro History: CHRONIC INFLAMMATORY DEMYELINATING POLYNEUROPATHY. NEUROGENIC BLADDER. AXONAL SENSORIMOTOR NEUROPATHY Psychiatric History: Reports: Addiction, Anxiety, Depression Endocrine/Metabolic History: Reports: Diabetes, Type II, Obesity/BMI 30+ Hematologic History: Reports: B12 Deficiency - Infectious Disease History Infectious Disease History: Reports: Chicken Pox, Influenza, Mumps - Past Surgical History Head Surgeries/Procedures: Reports: None HEENT Surgical History: Reports: Tonsillectomy Cardiovascular Surgical History: Reports: None Respiratory Surgical History: Reports: None GI Surgical History: Reports: Hernia, Abdominal Male Surgical History: Reports: None Endocrine Surgical History: Reports: None Neurological Surgical History: Reports: Lumbar Spine Other Neurological Surgeries/Procedures: 4 BULDGING DISCS Musculoskeletal Surgical History: Reports: Other (See Below) Other Musculoskeletal Surgeries/Procedures:: LEFT KNEE CAP FRACTURE - NON SURGICAL. Spinal surgery in May 2020 with severe complications. Pt no longer ambulatory, unable to feed self. Limited movement of left arm, minimal movemnt of right arm. - Past Imaging History Past Imaging History: Reports: CAT Scan, Xray Social & Family History - Family History Family Medical History: No Pertinent Family History - Caffeine Use Caffeine Use: Reports: Coffee Other Caffeine Use: DIET POP ED ROS GENERAL - Review of Systems Review Of Systems: Comprehensive ROS is negative, except as noted in HPI. ED EXAM, GENERAL - Physical Exam Exam: See Below Free Text/Narrative:: Alert, oriented, in no significant exhibited distress. HEENT negative discharge or deformity he speaks freely with no difficulty. There is no cyanosis nor pallor noted. He has somewhat tacky appearing oral membranes. Neck is soft and supple no lymphadenopathy. Thorax is raspy with mildly diminished bases right more so than left. I do not appreciate any wheezes nor crackles. Cardiac is S1-S2 I do not appreciate murmur there is a consistent ectopic skip with radial pulses correlating. Rotund abdomen soft with bowel sounds are present. He is turned right lateral side for assessment showing a fresh appearing decubiti pad in his midline of the sacral region. He states this was placed this evening prior to being sent to the emergency department. There is +2 to +3 edema to the lower extremities is also noted that he has some edema to his hands which he states appears stable to him. His skin is warm and dry. After laboratory analysis and CT are completed he is returned to his right again at which time the wound care patch is removed showing an extreme area of darkened friable tissue with 2 areas being extremely dark near black of which culture is obtained in the fold of the buttocks in the sacral region. Pictures are taken of this and placed in the chart with identification and measurements. A new padded self adhering dressing is placed per nursing staff. Laboratory analysis and the reports on CT are pending at this time as well as a Covid test for admission. It is noted that his urine culture was greater than 100,000 E. coli which I contacted [place] and was transferred numerous times until I reached the [facility] laboratory who was totally uncooperative in providing any information as they will not view or attempt a preliminary review of his culture plate despite the fact that I am informing them that he has been placed on antibiotic since yesterday and is worsening in his overall status and that it would be beneficial to know if there was any significant resistance or antibiotic reduction for the treatment process to which they will not cooperate. Course - Vital Signs Last Recorded V/S: Last Vital Signs Temp 99.6 F 11/15/20 20:50 Pulse 84 11/15/20 22:31 Resp 20 11/15/20 22:31 BP 111/59 L 11/15/20 22:31 Pulse Ox 93 L 11/15/20 22:31 - Orders/Labs/Meds Orders: Active Orders 24 hr Category Date Time Status Peripheral IV Care [RC] . DIRECTED Care 11/15/20 21:15 Active Chest w Cont [CT] Stat Exams 11/15/20 21:29 Ordered CULTURE BLOOD [BC] Stat Lab 11/15/20 21:16 Ordered CULTURE BLOOD [BC] Stat Lab 11/15/20 21:16 Ordered MISCELLANEOUS CULT [MREF] Stat Lab 11/15/20 22:20 Received Sodium Chloride 0.9% [Normal Saline] 50 ml Med 11/15/20 22:00 Active IV ASDIRECTED Sodium Chloride 0.9% [Saline Flush] Med 11/15/20 21:15 Active 10 ml FLUSH Q8HR PRN Blood Culture x2 Reflex Set [OM.PC] Stat Oth 11/15/20 21:15 Ordered Peripheral IV Insertion Adult [OM.PC] Routine Oth 11/15/20 21:15 Ordered Medication Orders Sodium Chloride (Normal Saline) 50 mls @ 200 mls/hr IV ASDIRECTED TERESITA Last Admin: 11/15/20 22:18 Dose: 200 mls/hr Documented by: JOSE L Sodium Chloride (Sodium Chloride 0.9% 10 Ml Syringe) 10 ml FLUSH Q8HR PRN PRN Reason: keep vein open Labs: Laboratory Tests 11/15/20 11/15/20 11/15/20 Range/Units 21:30 21:30 21:30 WBC 5.98 (5.00-10.00) 10^3/uL RBC 2.92 L (4.50-6.00) 10^6/uL Hgb 8.4 L (13.0-17.0) g/dL Hct 27.3 L (40.0-52.0) % MCV 93.5 H D (82.0-92.0) fL MCH 28.8 (27.0-31.0) pg MCHC 30.8 L (32.0-36.0) g/dL RDW 15.5 H (11.5-14.5) % Plt Count 168 (150-400) 10^3/uL MPV 10.4 (7.4-10.4) fL Immature Gran % (Auto) 0.2 (0.0-5.0) % Neut % (Auto) 67.3 (50.0-70.0) % Lymph % (Auto) 11.9 L (20.0-40.0) % [place] % (Auto) 17.2 H (2.0-8.0) % Eos % (Auto) 3.2 H (1.0-3.0) % Baso % (Auto) 0.2 (0.0-1.0) % Neut # (Auto) 4.03 (2.50-7.00) 10^3/uL Lymph # (Auto) 0.71 L (1.00-4.00) 10^3/uL [place] # (Auto) 1.03 H (0.10-0.80) 10^3/uL Eos # (Auto) 0.19 (0.10-0.30) 10^3/uL Baso # (Auto) 0.01 (0.00-0.10) 10^3/uL Immature Gran # (Auto) 0.01 (0.00-0.50) 10^3/uL Sodium 133 L (136-145) mmol/L Potassium 3.8 (3.5-5.1) mmol/L Chloride 96 L (98-107) mmol/L Carbon Dioxide 32.4 H (21.0-32.0) mmol/L Anion Gap 8.4 (5-15) mmol/L BUN 31 H (7-18) mg/dL Creatinine 0.95 (0.51-1.17) mg/dL Est Cr Clr Drug Dosing 86.45 mL/min Estimated GFR (MDRD) > 60 mL/min Glucose 123 (70-140) mg/dL Lactic Acid 0.6 (0.4-2.0) mmol/L Calcium 8.3 L (8.7-10.3) mg/dL Total Bilirubin 0.1 L (0.2-1.0) mg/dL AST 24 (15-37) U/L ALT 20 (14-63) U/L Alkaline Phosphatase 91 (46-116) U/L Total Protein 6.9 (6.4-8.2) g/dL Albumin 2.59 L (3.40-5.00) g/dL SARS CoV-2 RNA Rapid FELIPE (NEGATIVE) 11/15/20 Range/Units 22:17 WBC (5.00-10.00) 10^3/uL RBC (4.50-6.00) 10^6/uL Hgb (13.0-17.0) g/dL Hct (40.0-52.0) % MCV (82.0-92.0) fL MCH (27.0-31.0) pg MCHC (32.0-36.0) g/dL RDW (11.5-14.5) % Plt Count (150-400) 10^3/uL MPV (7.4-10.4) fL Immature Gran % (Auto) (0.0-5.0) % Neut % (Auto) (50.0-70.0) % Lymph % (Auto) (20.0-40.0) % [place] % (Auto) (2.0-8.0) % Eos % (Auto) (1.0-3.0) % Baso % (Auto) (0.0-1.0) % Neut # (Auto) (2.50-7.00) 10^3/uL Lymph # (Auto) (1.00-4.00) 10^3/uL [place] # (Auto) (0.10-0.80) 10^3/uL Eos # (Auto) (0.10-0.30) 10^3/uL Baso # (Auto) (0.00-0.10) 10^3/uL Immature Gran # (Auto) (0.00-0.50) 10^3/uL Sodium (136-145) mmol/L Potassium (3.5-5.1) mmol/L Chloride (98-107) mmol/L Carbon Dioxide (21.0-32.0) mmol/L Anion Gap (5-15) mmol/L BUN (7-18) mg/dL Creatinine (0.51-1.17) mg/dL Est Cr Clr Drug Dosing mL/min Estimated GFR (MDRD) mL/min Glucose (70-140) mg/dL Lactic Acid (0.4-2.0) mmol/L Calcium (8.7-10.3) mg/dL Total Bilirubin (0.2-1.0) mg/dL AST (15-37) U/L ALT (14-63) U/L Alkaline Phosphatase (46-116) U/L Total Protein (6.4-8.2) g/dL Albumin (3.40-5.00) g/dL SARS CoV-2 RNA Rapid FELIPE Negative (NEGATIVE) Meds: Medications Generic Name Dose Route Start Last Admin Trade Name Freq PRN Reason Stop Dose Admin Sodium Chloride 50 mls @ 200 mls/hr 11/15/20 22:00 11/15/20 22:18 Normal Saline IV 200 mls/hr ASDIRECTED TERESITA Administration Sodium Chloride 10 ml 11/15/20 21:15 Sodium Chloride 0.9% 10 Ml Syringe FLUSH Q8HR PRN keep vein open Discontinued Medications Generic Name Dose Route Start Last Admin Trade Name Eros PRN Reason Stop Dose Admin Iopamidol 100 ml 11/15/20 21:46 11/15/20 22:18 Iopamidol 755 Mg/Ml 100 Ml Bottle IV 11/15/20 21:47 100 ml ONETIME ONE Administration - Re-Assessments/Exams Free Text/Narrative Re-Assessment/Exam: 11/15/20 22:37 At this time with no elevation in white count found on tonight CBC he is satting 92% on 6 L per nasal cannula. Free Text/Narrative Re-Assessment/Exam: 11/15/20 23:03 Phone discussion with Quita Knott NP, [place] provider electric motors salesperson this evening. No significant criteria meeting admission requirements as a CT ruled out any significant pneumonia, white count is improved since was taken yesterday, and would hopefully be nonresistant E. coli as he is unable to get clarification finalization of culture this evening. In discussion with Quita she would feel reevaluation tomorrow through the clinic and the possibility of 1 services for his decubiti ulcer through the [place] clinic. We will be contacting [facility] to come back and provide transport to the facility. Departure - Departure Time of Disposition: 23:11 Disposition: DC/Tfer to [facility] 03 Condition: Fair Clinical Impression: UTI (urinary tract infection), Decubitus ulcer of buttock - Discharge Information *PRESCRIPTION DRUG MONITORING PROGRAM REVIEWED*: Not Applicable *COPY OF PRESCRIPTION DRUG MONITORING REPORT IN PATIENT JÚNIOR: Not Applicable Referrals: Nancy Castelan NP [Primary Care Provider] - Forms: ED Department Discharge Additional Instructions: No Metformin for 48 hours Continue all your other medications as previously directed. May continue with as needed nebulizers if saturations drop. Culture will hopefully give at least a preliminary report tomorrow to assure that urine is being treated appropriately. [place] provider will be seeing again tomorrow for debridement/evaluation considerations on the decubiti ulcer. Sepsis Event Note (ED) - Focused Exam Vital Signs: Vital Signs Temp Pulse Resp BP Pulse Ox 11/15/20 22:31 84 20 111/59 L 93 L 11/15/20 22:17 89 20 109/62 93 L 07/29/21 22:15 78 20 92 L 11/15/20 22:00 92 20 94 L 11/15/20 21:46 79 20 104/62 96 11/15/20 21:31 79 20 110/65 94 L 11/15/20 21:16 70 20 110/64 95 11/15/20 21:01 75 20 116/63 95 11/15/20 20:50 99.6 F 84 18 121/68 95 - Problem List & Annotations (1) Right lower lobe lung mass SNOMED Code(s): 052484640 Code(s): R91.8 - OTHER NONSPECIFIC ABNORMAL FINDING OF LUNG FIELD Status: Acute Priority: High Annotation/Comment:: CT performed tonight 15 November 2020, has readings of a dense right lower lobe consolidation with air bronchograms consistent with atelectasis versus infiltrates (2) UTI (urinary tract infection) SNOMED Code(s): 03389456 Code(s): N39.0 - URINARY TRACT INFECTION, SITE NOT SPECIFIED Status: Acute Priority: High Qualifiers: Urinary tract infection type: acute cystitis (3) Decubitus ulcer of buttock SNOMED Code(s): 665098747 Code(s): L89.309 - PRESSURE ULCER OF UNSPECIFIED BUTTOCK, UNSPECIFIED STAGE Status: Acute Priority: High Qualifiers: Pressure injury stage: stage 3 Laterality: unspecified laterality Qualified Code(s): L89.303 - Pressure ulcer of unspecified buttock, stage 3 (4) Respiratory distress SNOMED Code(s): 134616662 Code(s): R06.00 - DYSPNEA, UNSPECIFIED Status: Acute Priority: High - Problem List Review Problem List Initiated/Reviewed/Updated: Yes - My Orders Last 24 Hours: My Active Orders 11/15/20 21:15 Peripheral IV Care [RC] . DIRECTED Sodium Chloride 0.9% [Saline Flush] 10 ml FLUSH Q8HR PRN Blood Culture x2 Reflex Set [OM.PC] Stat Peripheral IV Insertion Adult [OM.PC] Routine 11/15/20 21:16 CULTURE BLOOD [BC] Stat CULTURE BLOOD [BC] Stat 11/15/20 21:29 Chest w Cont [CT] Stat 11/15/20 22:00 Sodium Chloride 0.9% [Normal Saline] 50 ml IV ASDIRECTED 11/15/20 22:20 MISCELLANEOUS CULT [MREF] Stat - Assessment/Plan Last 24 Hours: My Active Orders 11/15/20 21:15 Peripheral IV Care [RC] . DIRECTED Sodium Chloride 0.9% [Saline Flush] 10 ml FLUSH Q8HR PRN Blood Culture x2 Reflex Set [OM.PC] Stat Peripheral IV Insertion Adult [OM.PC] Routine 11/15/20 21:16 CULTURE BLOOD [BC] Stat CULTURE BLOOD [BC] Stat 11/15/20 21:29 Chest w Cont [CT] Stat 11/15/20 22:00 Sodium Chloride 0.9% [Normal Saline] 50 ml IV ASDIRECTED 11/15/20 22:20 MISCELLANEOUS CULT [MREF] Stat Plan: No Metformin for 48 hours Continue all your other medications as previously directed. May continue with as needed nebulizers if saturations drop. Culture will hopefully give at least a preliminary report tomorrow to assure that urine is being treated appropriately. [place] provider will be seeing again tomorrow for debridement/evaluation considerations on the decubiti ulcer.
[2020-11-15] MEDS ORDERED: Sodium Chloride 0.9% 10 ML Syringe FLUSH PRN (21:15)
[2020-11-15] MEDS ORDERED: Iopamidol 755 Mg/ML 100 ML Bottle IV ONE (21:46)
[2020-11-15] MEDS ORDERED: Sodium Chloride 0.9% 50 ML IV SCH (22:00)
[2020-11-15 22:07] LABS: ANION GAP 8.4 mmol/L (5-15); CHLORIDE,CL 96 mmol/L (98-107); SODIUM,NA 133 mmol/L (136-145)
[2020-11-15 23:37] VITALS: BP 109/61; PULSE 77
--- NOTE | 2020-11-16 08:40 | CT ---
[id number] CT/CT Chest W IV EXAM: CT Chest W IV CLINICAL DATA: RIGHT LUNG BASE OPACITY COMPARISON STUDY: None. FINDINGS: Lungs: Dense parenchymal opacification in both lung bases right greater than left. Appearance is consistent with atelectasis. Mediastinum: No mediastinal or hilar lymphadenopathy. Heart and great vessels: Cardiomegaly. Mild central vascular congestion. Thoracic aorta is normal in caliber. Bones: Multiple chronic and healed appearing right-sided rib fractures. No evidence of an acute fracture to account for findings in the lungs. Multiple chronic compression deformities, including T10-L1. No evidence of an acute fracture. Upper abdomen: Hepatosplenomegaly. Gallbladder is contracted. Nonspecific prominent lymph nodes in the christi hepatis. IMPRESSION: Dense parenchymal opacification in both lung bases right greater than left. Findings are most prominent in the right lower lobe. Findings are most consistent with atelectasis. Etiology of which is unclear. No acute cardiopulmonary findings. Hepatosplenomegaly. Correlate with LFTs. Jj Anaya MD 11/16/20 0839 Thank you for allowing us to participate in the care of your patient.
== END 2020-11-15 23:25 ==
LOC: KA.ED 20:39
DX: N39.0 Urinary tract infection, site not specified (principal); L89.329 Pressure ulcer of left buttock, unspecified stage; L89.319 Pressure ulcer of right buttock, unspecified stage; I10 Essential (primary) hypertension; J44.9 Chronic obstructive pulmonary disease, unspecified; K21.9 Gastro-esophageal reflux disease without esophagitis; M19.90 Unspecified osteoarthritis, unspecified site; E11.42 Type 2 diabetes mellitus with diabetic polyneuropathy; E66.9 Obesity, unspecified; Z68.41 Body mass index [BMI] 40.0-44.9, adult; Z88.8 Allergy status to other drugs, medicaments and biological substances; Z91.048 Other nonmedicinal substance allergy status; Z79.84 Long term (current) use of oral hypoglycemic drugs; Z79.899 Other long term (current) drug therapy; Z20.822 Contact with and (suspected) exposure to COVID-19
CPT/HCPCS: 36415; 71260; 80053; 83605; 85025; 87040; 87070; 87186; 87205; 99284; 99284-25; Q9967; U0002

== ENCOUNTER 2021-02-25 08:35 | Day surgery (SDC) | payer MEDICAID, OTHER ==
[~2021-02-25 08:35] MED LIST: Sodium Chloride 0.9% 1,000 ML IV SCH; Sodium Chloride 0.9% 10 ML Syringe FLUSH PRN
[2021-02-25] MEDS ORDERED: Propofol 200 MG/20 ML SDV IV ONE (08:36)
[2021-02-25] MEDS ORDERED: Albuterol/Ipratropium 3.0-0.5 MG/3 ML Neb Soln NEB ONE (09:09)
[2021-02-25] MEDS ORDERED: Propofol 200 MG/20 ML SDV ONE ×2 (09:32→10:04)
[2021-02-25 10:03] LABS: CHLORIDE,CL 104 mmol/L (98-107); SODIUM,NA 144 mmol/L (136-145)
--- NOTE | 2021-02-25 10:46 | PCM.OPNOTE ---
- General Post-Op/Procedure Note Date of Surgery/Procedure: 02/25/21 Anesthesia Technique: MAC Primary Surgeon: Rachel Amaya Condition: Good Free Text/Narrative:: INFORMED CONSENT: Patient is here today for elective colonoscopy. All aspects of this procedure have been discussed with the patient. All possible complications also, including possibility of perforation, infection, pain, bleeding and unknown complications. In the event of perforation patient may need to have abdominal exploration, colon resection, colostomy and even was discussed. Anesthetic complications were handled by anesthesia department. The patient understands fully well. Patient did not have any further questions for me at the end of my interview. The patient wishes for me to proceed. PREOPERATIVE DIAGNOSIS/INDICATIONS: [Anemia, Hemoccult positive stool.] POSTOPERATIVE DIAGNOSIS: [Normal colonoscopy] INSTRUMENT USED: SecureAuth videocolonoscope. ASA CLASSIFICATION: [2] ANESTHESIA: Continuous EKG, oximetry and intermittent blood pressure and respiratory monitoring were performed throughout the procedure. IV Versed and Fentanyl were administered. PROCEDURE PERFORMED: Colonoscopy POSITIONS OF PATIENT: Left lateral. RECTUM: Normal. SIGMOID COLON: Normal. DESCENDING COLON: Normal. SPLENIC FLEXURE: Normal. TRANSVERSE COLON: Normal. HEPATIC FLEXURE: Normal. ASCENDING COLON: Normal. CECUM: Normal. ILEOCECAL VALVE: Normal. BIOPSY: None. TOLERANCE: Excellent. COMPLICATIONS: None. Final diagnosis: Normal colonoscopy today previous diagnosis of ischemic colitis of the transverse and descending colon in September 2020.
[2021-02-25 11:03] VITALS: BP 146/72; PULSE 70
== END 2021-02-25 11:20 | disposition home or self-care (01) ==
LOC: KA.SDS 08:35
PROVIDERS: ATTEND Family Medicine
DX: D64.9 Anemia, unspecified (principal); G62.89 Other specified polyneuropathies; E11.49 Type 2 diabetes mellitus with other diabetic neurological complication; E66.2 Morbid (severe) obesity with alveolar hypoventilation; G47.33 Obstructive sleep apnea (adult) (pediatric); F33.9 Major depressive disorder, recurrent, unspecified; M48.062 Spinal stenosis, lumbar region with neurogenic claudication; G89.29 Other chronic pain; M25.562 Pain in left knee; K64.9 Unspecified hemorrhoids; I10 Essential (primary) hypertension; D62 Acute posthemorrhagic anemia; Z68.42 Body mass index [BMI] 45.0-49.9, adult
CPT/HCPCS: 00811; 36415; 80048; 82947; 85025; 94640; J2704; J7030; J7620-GY